=== PATIENT | male | born 1955 | race Caucasian/White ===

== ENCOUNTER → 2023-05-18 12:28 | Outpatient (CLI) | payer MEDICARE, OTHER, SELFPAY ==
--- NOTE | ~2023-05-18 | XR_ITS ---
EXAMINATION: XR knee RT 3V DATE: 05/18/2023 12:58 INDICATION: Right knee pain TECHNIQUE: Three views of the right knee were obtained. COMPARISON: None. FINDINGS: Alignment is normal. No fracture or osteochondral lesion. There is tricompartmental osteoar thritis of the, severe in the medial compartment and mild in the patellofemoral and lateral compartme nts. There is a large knee joint effusion. Soft tissues are unremarkable. IMPRESSION: 1. Severe osteoarthritis of the medial compartment. Large joint effusion. Reviewed, dictated and finalized at location [facility]
== END ==
DX: M17.11 Unilateral primary osteoarthritis, right knee (principal); M25.461 Effusion, right knee
CPT/HCPCS: 73562